=== PATIENT | female | born 1960 | race Hispanic/Latino ===

== ENCOUNTER 2018-12-03 14:52 | Emergency (ER) | payer OTHER ==
[~2018-12-03] VITALS: Ht 152.4 cm; Wt 46.3 kg
--- OUTSIDE RECORDS SUMMARY | 2018-12-03 14:55 | XMS REPORT | Clinical Summary ---
Author Author [facility] [place] Address Unknown Phone Unavailable Care Team Providers Care Software Sales Name Role Phone Raj--Yves Munson PCP Allergies Comments Active Allergy Reactions Severity Noted Date Onabotulinumtoxina 10/07/2018 Foaming at mouth Iodine And Iodide Palpitations, Low 02/02/2017 Containing Products Other (See Comments) Pregabalin Rash Low 02/02/2017 Medications End Date Status Medication Sig Dispensed Refills Start Date Active gabapentin (NEURONTIN) Take 800 mg 0 800 MG tablet by mouth 3 (three) times daily. Active esomeprazole (NEXIUM) 20 Take 20 mg by 0 MG capsule mouth daily. Active acetaminophen-codeine Take 1 tablet 0 (TYLENOL #3) 300-30 mg by mouth per tablet every 4 (four) hours as needed for Pain. Active UNKNOWN Medication 0 for diverticulosi s; unsure of name or dose . Active UNKNOWN Med Name: 0 MEDICATION FOR MUSCLE SPASM AND PAIN; UNSURE OF NAME OR DOSE . Active Problems Not on file Encounters Care Team Description Date Type Specialty Jake Aguilera MD 3, [facility] Mr Abdominal pain, right lower quadrant; Weight loss, unintentional 10/07/2018 Hospital Magnetic Resonance Encounter Imaging [facility] R[facility] abdominal [facility]; Weight loss, unintentional 10/07/2018 Hospital Magnetic Resonance Encounter Imaging Jake Aguilera MD Abdominal pain, right lower quadrant (Primary Dx); Weight loss, unintentional 09/29/2018 Outside Orders Central Scheduling Jake Aguilera MD RLQ abdominal pain (Primary Dx); Weight loss, unintentional 09/27/2018 Outside Orders Central Scheduling after 12/02/2017 Social History Date Tobacco Use Types Packs/Day Years Used Current Every Day Smoker 0.25 Smokeless Tobacco: Never Used Tobacco Cessation: Ready to Quit: No Alcohol Use Drinks/Week oz/Week Comments No Sex Assigned at Date Recorded Not on file Industry Job Start Date Occupation Not on file Not on file Not on file Travel End Travel History Travel Start No recent travel history available. Last Filed Vital Signs Not on file Plan of Treatment Not on file Procedures Comments Procedure Name Priority Date/Time Associated Diagnosis MR PELVIS WITHOUT & WITH Routine 10/07/2018 Abdominal pain, right IV CONTRAST 11:00 AM CDT lower quadrant Weight loss, unintentional MR ABDOMEN WITH/WITHOUT Routine 10/07/2018 RLQ abdominal pain IV CONTRAST 11:00 AM CDT Weight loss, unintentional after 12/02/2017 Results * MR abdomen without & with IV contrast (10/07/2018 11:00 AM CDT) Specimen Narrative Performed At FINAL REPORT [employer] MRI ABDOMEN AND PELVIS Indication: Right lower quadrant pain, unintentional weight loss, evaluate for ovarian mass or mesenteric mass Technique: Multiplanar, multi-sequential MRI was performed both before and after the intravenous administration of 5 cc of gadolinium. Comparison: CT enterography 10/20/2016. Colonoscopy report 02/03/2017 Findings: Lung bases: Clear Liver: Normal signal. No mass. Gallbladder: Absent. Biliary tree: No intrahepatic biliary ductal dilatation. The common bile duct measures 7 mm in maximum diameter and comes to a tight taper at the ampulla. No intraluminal filling defect. Pancreas: Normal T1 and T2 signal. No mass or ductal dilatation Spleen: Normal size and signal. No mass Adrenal glands: No evidence for mass. Kidneys: The kidneys are symmetric in size. No mass or hydronephrosis. Lymph nodes: No enlarged abdominal or periaortic lymph nodes. No enlarged mesenteric, pelvic, or inguinal lymph nodes. Bowel: Stomach:Normal. Small bowel:Normal in diameter with normal wall thickness. Large bowel: 8 cm segment of the sigmoid colon has diffusely thickened dodson on the post gadolinium T1-weighted sequences (series 5 and series 35). The adjacent vasculature is mildly engorged. There is no edema or mural thickening identified on any T2-weighted sequences, however. A few scattered diverticula are present without associated inflammation. There is no lymphadenopathy. Appendix: Not visualized and may be absent or collapsed. Uterus: Retroflexed. It measures approximately 7 cm in length. Neither ovary is visualized. Vasculature: Aorta and IVC are normal in morphology.The celiac, SMA, and RYLAN are widely patent and normal in morphology. Parametrial vasculature is not engorged. The portal vein is normal in diameter and is widely patent. Bladder: Normal. Peritoneum/retroperitoneum: No free fluid or fluid collection. Bones: Normal marrow signal.No focal osseous lesions. IMPRESSION: 1. Nonspecific mural thickening of the sigmoid colon visible only on the post gadolinium T1 sequences without associated edema or lymphadenopathy. This may simply be the result of peristalsis. This can be confirmed with sigmoidoscopy. No abnormalities of the stomach or small bowel. 2. No evidence of mesenteric or pelvic lymphadenopathy. 3.Retroflexed uterus. No evidence of ovarian mass. Signed: Shadi Sanchez MD Report Verified Date/Time:10/13/2018 14:35:37 Procedure Note Interface, External Ris In - 10/13/2018 2:37 PM CDT FINAL REPORT MRI ABDOMEN AND PELVIS Indication: Right lower quadrant pain, unintentional weight loss, evaluate for ovarian mass or mesenteric mass Technique: Multiplanar, multi-sequential MRI was performed both before and after the intravenous administration of 5 cc of gadolinium. Comparison: CT enterography 10/20/2016. Colonoscopy report 02/03/2017 Findings: Lung bases: Clear Liver: Normal signal. No mass. Gallbladder: Absent. Biliary tree: No intrahepatic biliary ductal dilatation. The common bile duct measures 7 mm in maximum diameter and comes to a tight taper at the ampulla. No intraluminal filling defect. Pancreas: Normal T1 and T2 signal. No mass or ductal dilatation Spleen: Normal size and signal. No mass Adrenal glands: No evidence for mass. Kidneys: The kidneys are symmetric in size. No mass or hydronephrosis. Lymph nodes: No enlarged abdominal or periaortic lymph nodes. No enlarged mesenteric, pelvic, or inguinal lymph nodes. Bowel: Stomach:Normal. Small bowel:Normal in diameter with normal wall thickness. Large bowel: 8 cm segment of the sigmoid colon has diffusely thickened dodson on the post gadolinium T1-weighted sequences (series 5 and series 35). The adjacent vasculature is mildly engorged. There is no edema or mural thickening identified on any T2-weighted sequences, however. A few scattered diverticula are present without associated inflammation. There is no lymphadenopathy. Appendix: Not visualized and may be absent or collapsed. Uterus: Retroflexed. It measures approximately 7 cm in length. Neither ovary is visualized. Vasculature: Aorta and IVC are normal in morphology. The celiac, SMA, and RYLAN are widely patent and normal in morphology. Parametrial vasculature is not engorged. The portal vein is normal in diameter and is widely patent. Bladder: Normal. Peritoneum/retroperitoneum: No free fluid or fluid collection. Bones: Normal marrow signal. No focal osseous lesions. IMPRESSION: 1. Nonspecific mural thickening of the sigmoid colon visible only on the post gadolinium T1 sequences without associated edema or lymphadenopathy. This may simply be the result of peristalsis. This can be confirmed with sigmoidoscopy. No abnormalities of the stomach or small bowel. 2. No evidence of mesenteric or pelvic lymphadenopathy. 3. Retroflexed uterus. No evidence of ovarian mass. Signed: Shadi Sanchez MD Report Verified Date/Time: 10/13/2018 14:35:37 Performing Organization Address City/State/Zipcode Phone Number Information Gateway [facility] * MR pelvis without & with IV contrast (10/07/2018 11:00 AM CDT) Specimen Narrative Performed At FINAL REPORT [employer] MRI ABDOMEN AND PELVIS Indication: Right lower quadrant pain, unintentional weight loss, evaluate for ovarian mass or mesenteric mass Technique: Multiplanar, multi-sequential MRI was performed both before and after the intravenous administration of 5 cc of gadolinium. Comparison: CT enterography 10/20/2016. Colonoscopy report 02/03/2017 Findings: Lung bases: Clear Liver: Normal signal. No mass. Gallbladder: Absent. Biliary tree: No intrahepatic biliary ductal dilatation. The common bile duct measures 7 mm in maximum diameter and comes to a tight taper at the ampulla. No intraluminal filling defect. Pancreas: Normal T1 and T2 signal. No mass or ductal dilatation Spleen: Normal size and signal. No mass Adrenal glands: No evidence for mass. Kidneys: The kidneys are symmetric in size. No mass or hydronephrosis. Lymph nodes: No enlarged abdominal or periaortic lymph nodes. No enlarged mesenteric, pelvic, or inguinal lymph nodes. Bowel: Stomach:Normal. Small bowel:Normal in diameter with normal wall thickness. Large bowel: 8 cm segment of the sigmoid colon has diffusely thickened dodson on the post gadolinium T1-weighted sequences (series 5 and series 35). The adjacent vasculature is mildly engorged. There is no edema or mural thickening identified on any T2-weighted sequences, however. A few scattered diverticula are present without associated inflammation. There is no lymphadenopathy. Appendix: Not visualized and may be absent or collapsed. Uterus: Retroflexed. It measures approximately 7 cm in length. Neither ovary is visualized. Vasculature: Aorta and IVC are normal in morphology.The celiac, SMA, and RYLAN are widely patent and normal in morphology. Parametrial vasculature is not engorged. The portal vein is normal in diameter and is widely patent. Bladder: Normal. Peritoneum/retroperitoneum: No free fluid or fluid collection. Bones: Normal marrow signal.No focal osseous lesions. IMPRESSION: 1. Nonspecific mural thickening of the sigmoid colon visible only on the post gadolinium T1 sequences without associated edema or lymphadenopathy. This may simply be the result of peristalsis. This can be confirmed with sigmoidoscopy. No abnormalities of the stomach or small bowel. 2. No evidence of mesenteric or pelvic lymphadenopathy. 3.Retroflexed uterus. No evidence of ovarian mass. Signed: Sahdi Sanchez MD Report Verified Date/Time:10/13/2018 14:35:37 Procedure Note Interface, External Ris In - 10/13/2018 2:37 PM CDT FINAL REPORT MRI ABDOMEN AND PELVIS Indication: Right lower quadrant pain, unintentional weight loss, evaluate for ovarian mass or mesenteric mass Technique: Multiplanar, multi-sequential MRI was performed both before and after the intravenous administration of 5 cc of gadolinium. Comparison: CT enterography 10/20/2016. Colonoscopy report 02/03/2017 Findings: Lung bases: Clear Liver: Normal signal. No mass. Gallbladder: Absent. Biliary tree: No intrahepatic biliary ductal dilatation. The common bile duct measures 7 mm in maximum diameter and comes to a tight taper at the ampulla. No intraluminal filling defect. Pancreas: Normal T1 and T2 signal. No mass or ductal dilatation Spleen: Normal size and signal. No mass Adrenal glands: No evidence for mass. Kidneys: The kidneys are symmetric in size. No mass or hydronephrosis. Lymph nodes: No enlarged abdominal or periaortic lymph nodes. No enlarged mesenteric, pelvic, or inguinal lymph nodes. Bowel: Stomach:Normal. Small bowel:Normal in diameter with normal wall thickness. Large bowel: 8 cm segment of the sigmoid colon has diffusely thickened dodson on the post gadolinium T1-weighted sequences (series 5 and series 35). The adjacent vasculature is mildly engorged. There is no edema or mural thickening identified on any T2-weighted sequences, however. A few scattered diverticula are present without associated inflammation. There is no lymphadenopathy. Appendix: Not visualized and may be absent or collapsed. Uterus: Retroflexed. It measures approximately 7 cm in length. Neither ovary is visualized. Vasculature: Aorta and IVC are normal in morphology. The celiac, SMA, and RYLAN are widely patent and normal in morphology. Parametrial vasculature is not engorged. The portal vein is normal in diameter and is widely patent. Bladder: Normal. Peritoneum/retroperitoneum: No free fluid or fluid collection. Bones: Normal marrow signal. No focal osseous lesions. IMPRESSION: 1. Nonspecific mural thickening of the sigmoid colon visible only on the post gadolinium T1 sequences without associated edema or lymphadenopathy. This may simply be the result of peristalsis. This can be confirmed with sigmoidoscopy. No abnormalities of the stomach or small bowel. 2. No evidence of mesenteric or pelvic lymphadenopathy. 3. Retroflexed uterus. No evidence of ovarian mass. Signed: Shadi Sanchez MD Report Verified Date/Time: 10/13/2018 14:35:37 Performing Organization Address City/State/Zipcode Phone Number GE RIS after 12/02/2017 Insurance Payer Benefit Subscriber ID Type Phone Address Plan / Group MEDICAID - MEDICAID MGD [facility] xxxxxxxxx Medicaid [facility]ARE [facility] Contracted PLAN
--- OUTSIDE RECORDS SUMMARY | 2018-12-03 14:55 | XMS REPORT ---
[facility] Address Unknown Phone Unavailable Care Team Providers Care Machine Assembler Name Role Phone SURINDER SRINIVASAN Unavailable Unavailable Problems This patient has no known problems. Allergies, Adverse Reactions, Alerts This patient has no known allergies or adverse reactions. Medications This patient has no known medications. Encounters Start Date/Time End Date/Time Encounter Type Admission Type Attending [facility] Care Department Encounter ID 2019-01-27 00:00:00 2019-01-27 00:00:00 Outpatient [facility] [id number] 2018-11-11 00:00:00 2018-11-11 00:00:00 Outpatient [facility] [id number] 2018-08-24 10:57:09 2018-08-24 10:57:09 Outpatient [facility] [id number] 2018-04-30 00:00:00 2018-04-30 00:00:00 Outpatient [facility] [id number] 2018-04-29 10:57:51 2018-04-29 10:57:51 Outpatient [facility] [id number] 2018-03-09 00:00:00 2018-03-09 00:00:00 Outpatient [facility] [id number] 2018-03-02 00:00:00 2018-03-02 00:00:00 Outpatient [facility] [id number] 2018-02-23 00:00:00 2018-02-23 00:00:00 Outpatient [facility] [id number] 2018-02-16 00:00:00 2018-02-16 00:00:00 Outpatient [facility] [id number] 2017-12-22 10:45:10 2017-12-22 10:45:10 Outpatient [facility] [id number] 2017-11-24 15:01:24 2017-11-24 15:01:24 Outpatient [facility] [id number] 2017-11-17 15:45:36 2017-11-17 15:45:36 Outpatient [facility] [id number] Results Test Description Test Time Test Comments Text Results Atomic Results Result Comments MR, ABDOMEN, WITHOUT / WITH IV CONTRAST 2018-10-13 14:35:00 FINAL REPORT MRI ABDOMEN AND PELVIS Indication: [...] mesenteric, pelvic, or inguinal lymph nodes. Bowel: Stomach:Normal.Small bowel:Normal in diameter with normal wall thickness.Large bowel: 8 cm segment of the sigmoid colon has diffusely thickened dodson on the post gadolinium T1-weighted sequences (series 5 and series 35). The adjacent vasculature is mildly engorged. There is no edema or mural thickening identified on any T2-weighted sequences, however. A few scattered diverticula are present without associated inflammation. There is no lymphadenopathy.Appendix: Not visualized and may be absent or [...] uterus. No evidence of ovarian mass. Signed: Daniel, Desencia MDReport Verified Date/Time: 10/13/2018 14:35:37 E lectronically signed by: SHADI SANCHEZ MD on 10/13/2018 02:35 PM MR, PELVIS, WITHOUT / WITH IV CONTRAST 2018-10-13 14:35:00 FINAL REPORT MRI ABDOMEN AND PELVIS Indication: [...] mesenteric, pelvic, or inguinal lymph nodes. Bowel: Stomach:Normal.Small bowel:Normal in diameter with normal wall thickness.Large bowel: 8 cm segment of the sigmoid colon has diffusely thickened dodson on the post gadolinium T1-weighted sequences (series 5 and series 35). The adjacent vasculature is mildly engorged. There is no edema or mural thickening identified on any T2-weighted sequences, however. A few scattered diverticula are present without associated inflammation. There is no lymphadenopathy.Appendix: Not visualized and may be absent or [...] evidence of ovarian mass. Signed: Shadi Sanchez MDReport Verified Date/Time: 10/13/2018 14:35:37 E lectronically signed by: SHADI SANCHEZ MD on 10/13/2018 02:35 PM TISSUE EXAM 2017-02-03 11:43:00 Surgical Pathology Report Case: [id number] Authorizing Provider: Kristian Srinivasan MD Collected: 02/02/2017 0920 Ord ering Location: [facility] Endoscopy Received: 02/02/2017 1431 Services Pathologist: Maria De Jesus Shi MD Specimens: A) - Duodenum, Bx Duodenum B) - Stomach, Bx Stomach R/O H. Pylori C) - Distal Esophagus, Bx Distal Esophagus A. SMALL INTESTINE, DUODENUM, BIOPSY: - DUODENAL MUCOSA WITH NO SIGNIFICANT PATHOLOGIC ALTERATION - NO VILLOUS BLUNTING OR INCREASED INTRAEPITHELIAL LYMPHOCYTESB. STOMACH, BIOPSY: - ANTRAL AND OXYNTIC MUCOSA WITH CHRONIC INACTIVE GASTRITIS - NO INTESTINAL METAPLASIA, DYSPLASIA OR MALIGNANCY SEEN - NEGATIVE FOR H. PYLORI ORGANISMS (WARTHIN STARRY STAIN)C. ESOPHAGUS, DISTAL, BIOPSY: - SQUAMOUS MUCOSA WITH MILD REFLUX ESOPHAGITIS - NO INTESTINAL METAPLASIA, DYSPLASIA OR MALIGNANCY SEEN Signing Pathologist Direct Phone Line: [phone] signed by Maria De Jesus Shi MD on 02/03/2017 at 11:43 [id number], [id number] abdominal pain, constipation, abdominal bloating, nonintractable cyclical vomiting with nausea, nausea and vomiting, rule out H. Pylori A. Duodenum biopsyB. Stomach biopsyC. Distal esophagus biopsySpecimen is received in three containers of formalin all labeled with the patient's information.Specimen A: Labeled "duodenum biopsy" consists of multiple round fragments of whitley tissue ranging from 0.1 to 0.3 cm, submitted entirely in A1.Specimen B: Labeled "stomach biopsy" consists of four round fragments of whitley tissue ranging from 0.1 to 0.3 cm, submitted entirely in B1.Specimen C: Labeled "distal esophagus biopsy" consists of two ragged fragments of off-white soft tissue measuring 0.4 and 0.5 cm, submitted entirely in C1. CG/Veronika-C. Performed. The following special studies were performed on this case with appropriate and reactive controls and the interpretation is incorporated in the diagnostic report above:Warthin Starry stain
--- NOTE | 2018-12-03 15:12 | NUR ---
DR GALLEGO AT BEDSIDE FOR PATIENT EVAL.
[2018-12-03] MEDS ORDERED: METHYLPREDNISOLONE SOD SUCC 125 MG/2ML VIAL IV ONE (16:00)
[2018-12-03] MEDS ORDERED: SODIUM CHLORIDE 0.9% 500ML 500 ML IV ONE (16:00)
[2018-12-03] MEDS ORDERED: DIPHENHYDRAMINE HCL INJ 50 MG/ML VIAL IV ONE (16:00)
[2018-12-03] MEDS ORDERED: METOCLOPRAMIDE HCL 10 MG/2ML VIAL IV ONE (16:00)
--- NOTE | 2018-12-03 16:05 | Diagnostic Imaging Report ---
CT [facility] HISTORY: Trauma COMPARISON: None. TECHNIQUE: Noncontrast axial scans were obtained from skull base to the vertex. Coronal and sagittal reconstructions obtained from the axial data. One or more of the following dose reduction techniques were used: Automated exposure control, adjustment of the mA and/or kV according to patient size, and/or utilization of iterative reconstruction technique. DISCUSSION: Scalp/Skull: No calvarial fracture Brain sulci: Appropriate for patient's age. Ventricles: Normal in size and configuration. No hydrocephalus. Extra-axial spaces: No masses or fluid collections. Carotid siphon calcifications are present. Parenchyma: There is mild right cerebellar tonsillar ectopia. No mass, hemorrhage, or large vascular territory acute infarct. Dural sinuses: No abnormal densities. Sellar/Suprasellar region: Intact. Skull base: Apparent left mastoidectomy changes. Incidental findings: Bilateral maxillary antrostomy, uncinectomy, and ethmoidectomy changes are partially visualized. IMPRESSION: 1. No acute intracranial abnormalities. 2. Mild right cerebellar tonsillar ectopia. Signed by: Dr. Clint Thomas M.D. on 12/03/2018 4:01 PM
--- NOTE | 2018-12-03 16:09 | Diagnostic Imaging Report ---
CT C-SPINE W/O - [facility] HISTORY: Trauma COMPARISON: Concurrent head CT; report from cervical spine MRI dated 01/18/2008 (images not available) TECHNIQUE: CT of the cervical spine without contrast. Sagittal and coronal reformations were created. One or more of the following dose reduction techniques were used: Automated exposure control, adjustment of the mA and/or kV according to patient size, and/or utilization of iterative reconstruction technique. FINDINGS: Cervical lordosis is slightly straightened. There is no scoliosis or subluxation. No fractures, compression deformity, or destructive osseous lesions are seen. The craniocervical junction is intact. No gross spinal canal masses are seen. The paravertebral and paraspinal soft tissues are unremarkable. Mild multilevel spondylotic changes are most prominent at C5-C6. Mild atlantoaxial arthrosis is present as well. Moderate right and mild left carotid bulb calcified plaque is present. IMPRESSION: No acute osseous abnormalities. Mild multilevel spondylosis, most prominent at C5-C6. Signed by: Dr. Clint Thomas M.D. on 12/03/2018 4:05 PM
[2018-12-03] MEDS ORDERED: DIPHENHYDRAMINE HCL INJ 50 MG/ML VIAL ONE (16:40)
[2018-12-03] MEDS ORDERED: SODIUM CHLORIDE 0.9% 500ML 500 ML ONE (16:41)
[2018-12-03] MEDS ORDERED: METOCLOPRAMIDE HCL 10 MG/2ML VIAL ONE (16:41)
[2018-12-03] MEDS ORDERED: METHYLPREDNISOLONE SOD SUCC 125 MG/2ML VIAL ONE (16:41)
[2018-12-03] MEDS ORDERED: ULTRAM50 MG PO (17:15)
[2018-12-03] MEDS ORDERED: REGLAN10 MG PO (17:15)
[2018-12-03 17:35] VITALS: BP 118/79
== END 2018-12-03 17:36 | disposition home or self-care (01) ==
LOC: FSED 14:52
DX: S06.0X0A Concussion without loss of consciousness, initial encounter (principal); G44.309 Post-traumatic headache, unspecified, not intractable; R29.818 Other symptoms and signs involving the nervous system; W19.XXXA Unspecified fall, initial encounter; Y92.410 Unspecified street and highway as the place of occurrence of the external cause
CPT/HCPCS: 70450; 72125; 80053; 85025; 99283; J1200; J2765; J2930; J7040

== ENCOUNTER 2020-07-16 15:27 | Emergency (ER) | payer OTHER ==
[~2020-07-16] VITALS: Ht 152.4 cm; Wt 46.3 kg
[~2020-07-16 15:27] MED LIST: REGLAN10 MG PO; ULTRAM50 MG PO
[2020-07-16] MEDS ORDERED: ONDANSETRON HCL INJ 2MG/ML 2ML 2 MG/ML VIAL IV STA (15:49)
[2020-07-16] MEDS ORDERED: KETOROLAC TROMETHAMINE 30 MG/ML VIAL IV STA (15:49)
[2020-07-16] MEDS ORDERED: SODIUM CHLORIDE 0.9% 1000ML 1,000 ML IV STA (15:49)
[2020-07-16 15:58] LABS: BASOPHILS # (AUTO) 0.1 (0.0-0.1); BASOPHILS % 0.8 % (0.0-1.0); EOSINOPHILS # (AUTO) 0.6 (0.0-0.4); HEMATOCRIT 43.1 % (34.2-44.1); HEMOGLOBIN 13.9 g/dL (12.0-16.0); LYMPHOCYTES # (AUTO) 3.7 (1.0-3.2); LYMPHOCYTES % 41.1 % (18.0-39.1); MEAN CORPUSCULAR HEMOGLOBIN 29.5 pg (28-32); MEAN CORPUSCULAR HGB CONC 32.3 g/dL (31-35); MEAN CORPUSCULAR VOLUME 91.5 fL (81-99); MONOCYTES # (AUTO) 0.7 (0.2-0.8); MONOCYTES % 7.4 % (4.4-11.3); NEUTROPHILS # (AUTO) 3.9 (2.1-6.9); NEUTROPHILS % 43.5 % (38.7-80.0); PLATELET COUNT 266 x10e3/uL (140-360); RED BLOOD COUNT 4.71 x10e6/uL (3.6-5.1); RED CELL DISTRIBUTION WIDTH 13.6 % (11.7-14.4)
[2020-07-16 16:18] LABS: ALANINE AMINOTRANSFERASE 14 IU/L (0-55); ALBUMIN 4.4 g/dL (3.5-5.0); ALBUMIN/GLOBULIN RATIO 1.3 (0.8-2.0); ALKALINE PHOSPHATASE 65 IU/L (40-150); ANION GAP 14.4 mmol/L (8-16); BLOOD UREA NITROGEN 12 mg/dL (7-26); BUN/CREATININE RATIO 15 (6-25); CALCIUM 9.2 mg/dL (8.4-10.2); CARBON DIOXIDE 25 mmol/L (22-29); CHLORIDE 105 mmol/L (98-107); CREATINE KINASE 53 IU/L (29-168); CREATININE, SERUM 0.79 mg/dL (0.57-1.11); EST GLOMERULAR FILTRATION RATE > 60 ML/MIN (60-); GLUCOSE 81 mg/dL (74-118); POTASSIUM 3.4 mmol/L (3.5-5.1); SODIUM 141 mmol/L (136-145)
[2020-07-16 18:35] VITALS: BP 130/61
== END 2020-07-16 18:36 | disposition home or self-care (01) ==
LOC: ER 15:58
DX: R10.84 Generalized abdominal pain (principal); I10 Essential (primary) hypertension; E03.9 Hypothyroidism, unspecified; K21.9 Gastro-esophageal reflux disease without esophagitis; M79.7 Fibromyalgia
CPT/HCPCS: 36415; 74176; 80053; 82550; 82553; 83690; 84484; 85025; 99284; J1885; J2405; J7030

== ENCOUNTER 2020-10-04 15:52 | Emergency (ER) | payer OTHER ==
[~2020-10-04] VITALS: Ht 152.4 cm; Wt 46.3 kg
[2020-10-04] MEDS ORDERED: HYDROCODONE/APAP 5MG-325MG TAB PO ONE (16:00)
[2020-10-04] MEDS ORDERED: AZITHROMYCIN250 MG PO (17:07)
[2020-10-04] MEDS ORDERED: TYLENOL # 31 EA PO (17:07)
[2020-10-04] MEDS ORDERED: PREDNISONE20 MG PO (17:07)
[2020-10-04] MEDS ORDERED: VENTOLIN HFA18 GM INH (17:07)
== END 2020-10-04 17:15 | disposition home or self-care (01) ==
LOC: ER 15:58
DX: S20.211A Contusion of right front wall of thorax, initial encounter (principal); R07.89 Other chest pain; W22.09XA Striking against other stationary object, initial encounter; Y92.008 Other place in unspecified non-institutional (private) residence as the place of occurrence of the external cause; I10 Essential (primary) hypertension; E03.9 Hypothyroidism, unspecified; K21.9 Gastro-esophageal reflux disease without esophagitis; M79.7 Fibromyalgia; M54.9 Dorsalgia, unspecified; G89.29 Other chronic pain
CPT/HCPCS: 71250; 93005; 99283

== ENCOUNTER 2022-01-17 17:20 | Emergency (ER) | payer OTHER ==
[~2022-01-17] VITALS: Ht 152.4 cm; Wt 41.3 kg
[~2022-01-17 17:20] MED LIST changes: +AZITHROMYCIN250 MG PO; +PREDNISONE20 MG PO; +TYLENOL # 31 EA PO; +VENTOLIN HFA18 GM INH
[2022-01-17] MEDS ORDERED: IBUPROFEN 600 MG TAB PO STA (17:44)
[2022-01-17] MEDS ORDERED: CYCLOBENZAPRINE HCL 10 MG TAB PO ONE (17:45)
[2022-01-17] MEDS ORDERED: HYDROCODONE/APAP 5MG-325MG TAB PO ONE (17:45)
[2022-01-17] MEDS ORDERED: DEXAMETHASONE SOD PHOS 10 MG/1 ML VIAL IM ONE (17:45)
[2022-01-17] MEDS ORDERED: DEXAMETHASONE SOD PHOS 10 MG/1 ML VIAL ONE (18:02)
== END 2022-01-17 19:02 | disposition home or self-care (01) ==
LOC: ER 17:27
DX: M25.551 Pain in right hip (principal); M54.31 Sciatica, right side; I10 Essential (primary) hypertension; E03.9 Hypothyroidism, unspecified; K21.9 Gastro-esophageal reflux disease without esophagitis; M79.7 Fibromyalgia; M54.9 Dorsalgia, unspecified; G89.29 Other chronic pain
CPT/HCPCS: 73502; 99282; J1100

== ENCOUNTER → 2022-07-14 | Outpatient (CLI) | payer OTHER ==
[~2022-07-14] MED LIST changes: +GADOBENATE DIMEGLUMINE 1 ML IV ONE
[2022-07-14 09:18] LABS: CREATININE, SERUM 0.61 mg/dL (0.57-1.11)
== END ==
LOC: MRI 08:19
PROVIDERS: ATTEND Internal Medicine Gastroenterology
DX: R10.9 Unspecified abdominal pain (principal); R63.4 Abnormal weight loss
CPT/HCPCS: 36415; 72197; 74183; 82565; 84520; A9577

== ENCOUNTER 2022-08-06 15:55 | Emergency (ER) | payer OTHER ==
[~2022-08-06] VITALS: Ht 152.4 cm; Wt 41.3 kg
[~2022-08-06 15:55] MED LIST changes: -GADOBENATE DIMEGLUMINE 1 ML IV ONE
[2022-08-06] MEDS ORDERED: SODIUM CHLORIDE 0.9% 1000ML 1,000 ML IV STA (16:45)
[2022-08-06] MEDS ORDERED: ONDANSETRON HCL INJ 2MG/ML 2ML 2 MG/ML VIAL IV STA (16:45)
[2022-08-06 16:53] LABS: BASOPHILS # (AUTO) 0.1 (0.0-0.1); BASOPHILS % 0.6 % (0.0-1.0); EOSINOPHILS # (AUTO) 0.4 (0.0-0.4); EOSINOPHILS % 5.4 % (0.0-6.0); HEMATOCRIT 38.2 % (34.2-44.1); HEMOGLOBIN 12.5 g/dL (12.0-16.0); LYMPHOCYTES # (AUTO) 3.6 (1.0-3.2); LYMPHOCYTES % 43.6 % (18.0-39.1); MEAN CORPUSCULAR HEMOGLOBIN 29.8 pg (28-32); MEAN CORPUSCULAR HGB CONC 32.7 g/dL (31-35); MONOCYTES # (AUTO) 0.6 (0.2-0.8); MONOCYTES % 7.7 % (4.4-11.3); NEUTROPHILS # (AUTO) 3.5 (2.1-6.9); NEUTROPHILS % 42.5 % (38.7-80.0); PLATELET COUNT 266 x10e3/uL (140-360); RED CELL DISTRIBUTION WIDTH 14.6 % (11.7-14.4)
[2022-08-06 17:11] LABS: ALBUMIN 3.6 g/dL (3.5-5.0); ALBUMIN/GLOBULIN RATIO 1.2 (0.8-2.0); ANION GAP 12.6 mmol/L (8-16); CALCIUM 9.1 mg/dL (8.4-10.2); CREATININE, SERUM 0.68 mg/dL (0.57-1.11); POTASSIUM 3.6 mmol/L (3.5-5.1)
[2022-08-06] MEDS ORDERED: DIPHENHYDRAMINE HCL INJ 50 MG/ML VIAL IV ONE (17:30)
[2022-08-06 17:53] LABS: CLARITY,URINE CLEAR (CLEAR); COLOR,URINE YELLOW (YELLOW); LEUKOCYTE ESTERASE ,URINE NEGATIVE (NEGATIVE); NITRITE,URINE NEGATIVE (NEGATIVE); PROTEIN,URINE DIPSTICK NEGATIVE (NEGATIVE)
[2022-08-06 17:54] LABS: KETONES,URINE NEGATIVE (NEGATIVE); URINE UROBILINOGEN 0.2 mg/dL (0.2 - 1)
[2022-08-06] MEDS ORDERED: IOPAMIDOL 370 MG/ML 100 ML INFUS..BTL INJ ONE (18:07)
[2022-08-06 18:10] LABS: EPITHELIAL CELLS,URINE FEW /LPF; RBC,URINE 0-5 /HPF (0-5); WBC,URINE (MAN) 0-5 /HPF (0-5)
[2022-08-06] MEDS ORDERED: BENTYL10 MG/1 ML IV (18:48)
[2022-08-06] MEDS ORDERED: ONDANSETRON ODT4 MG PO (18:48)
[2022-08-06] MEDS ORDERED: HYDROCODONE/APAP 7.5MG-325MG 1 EA TAB PO ONE (19:15)
[2022-08-06] MEDS ORDERED: HYDROCODONE/APAP 7.5MG-325MG 1 EA TAB ONE (19:19)
== END 2022-08-06 19:08 | disposition home or self-care (01) ==
LOC: ER 15:59
DX: R10.84 Generalized abdominal pain (principal); R11.0 Nausea; I10 Essential (primary) hypertension; E03.9 Hypothyroidism, unspecified; K21.9 Gastro-esophageal reflux disease without esophagitis; M54.9 Dorsalgia, unspecified; G89.29 Other chronic pain; M79.7 Fibromyalgia; Z87.19 Personal history of other diseases of the digestive system
CPT/HCPCS: 36415; 74177; 80053; 81001; 83690; 85025; 99284; J1200; J2405; J7030; Q9967

== ENCOUNTER 2022-12-01 18:14 | Emergency (ER) | payer OTHER ==
[~2022-12-01] VITALS: Ht 152.4 cm; Wt 41.3 kg
[~2022-12-01 18:14] MED LIST changes: +BENTYL10 MG/1 ML IV; +ONDANSETRON ODT4 MG PO
[2022-12-01] MEDS ORDERED: ONDANSETRON HCL INJ 2MG/ML 2ML 2 MG/ML VIAL IV STA (18:37)
[2022-12-01] MEDS ORDERED: SODIUM CHLORIDE 0.9% 1000ML 1,000 ML IV STA (18:37)
[2022-12-01] MEDS ORDERED: Morphine 4mg INJECTION 4 MG/ML INJ IV ONE (18:45)
[2022-12-01 18:59] LABS: BASOPHILS # (AUTO) 0.1 (0.0-0.1); BASOPHILS % 0.6 % (0.0-1.0); EOSINOPHILS # (AUTO) 0.5 (0.0-0.4); EOSINOPHILS % 4.8 % (0.0-6.0); HEMATOCRIT 37.1 % (34.2-44.1); HEMOGLOBIN 12.1 g/dL (12.0-16.0); LYMPHOCYTES # (AUTO) 3.8 (1.0-3.2); LYMPHOCYTES % 34.6 % (18.0-39.1); MEAN CORPUSCULAR HEMOGLOBIN 30.3 pg (28-32); MEAN CORPUSCULAR HGB CONC 32.6 g/dL (31-35); MONOCYTES # (AUTO) 0.6 (0.2-0.8); MONOCYTES % 5.8 % (4.4-11.3); NEUTROPHILS # (AUTO) 5.9 (2.1-6.9); NEUTROPHILS % 53.9 % (38.7-80.0); PLATELET COUNT 262 x10e3/uL (140-360); RED BLOOD COUNT 3.99 x10e6/uL (3.6-5.1); RED CELL DISTRIBUTION WIDTH 14.7 % (11.7-14.4)
[2022-12-01 19:17] LABS: ANION GAP 11.8 mmol/L (8-16); CALCIUM 8.7 mg/dL (8.4-10.2); CREATININE, SERUM 0.69 mg/dL (0.57-1.11); POTASSIUM 3.8 mmol/L (3.5-5.1)
[2022-12-01 19:17] LABS: CLARITY,URINE SL CLOUDY (CLEAR); COLOR,URINE YELLOW (YELLOW)
[2022-12-01 19:18] LABS: ALBUMIN 3.5 g/dL (3.5-5.0); BILIRUBIN,DIRECT 0.1 mg/dL (0.0-0.5)
[2022-12-01 19:18] LABS: KETONES,URINE TRACE (NEGATIVE); LEUKOCYTE ESTERASE ,URINE TRACE (NEGATIVE); NITRITE,URINE NEGATIVE (NEGATIVE); PROTEIN,URINE DIPSTICK NEGATIVE (NEGATIVE); URINE UROBILINOGEN 0.2 mg/dL (0.2 - 1)
[2022-12-01 19:30] LABS: BACTERIA,URINE FEW /HPF; EPITHELIAL CELLS,URINE FEW /LPF; MUCUS,URINE FEW (RARE); WBC,URINE (MAN) 0-5 /HPF (0-5)
[2022-12-01] MEDS ORDERED: MIRALAX17 GM PO (19:48)
[2022-12-01] MEDS ORDERED: ONDANSETRON ODT4 MG PO (19:49)
[2022-12-01] MEDS ORDERED: METOCLOPRAMIDE10 MG PO (19:50)
[2022-12-01 20:12] VITALS: BP 129/84; PULSE 74; RESP 18; TEMP 98; O2SAT 99
== END 2022-12-01 20:13 | disposition home or self-care (01) ==
LOC: ER 18:28
DX: R10.30 Lower abdominal pain, unspecified (principal); K59.00 Constipation, unspecified; R11.0 Nausea; E03.9 Hypothyroidism, unspecified; K21.9 Gastro-esophageal reflux disease without esophagitis; M79.7 Fibromyalgia; M54.9 Dorsalgia, unspecified; G89.29 Other chronic pain; Z87.19 Personal history of other diseases of the digestive system; F17.210 Nicotine dependence, cigarettes, uncomplicated
CPT/HCPCS: 36415; 74176; 80048; 80076; 81001; 83690; 85025; 99283; C9113; J2270; J2405; J7030